=== PATIENT | male | born 1990 | race Caucasian/White ===

== ENCOUNTER 2017-01-02 21:31 | Emergency (ER) | payer MEDICAID ==
[2017-01-02] MEDS ORDERED: Ketorolac 30 MG/ML SDV IM ONE (21:55)
--- NOTE | 2017-01-02 21:58 | EDM.PDOC ---
ED HPI GENERAL MEDICAL PROBLEM - General Chief Complaint: Back Pain or Injury Stated Complaint: SEVERE BACK PAIN, [id number] Time Seen by Provider: 01/02/17 21:52 Source of Information: Reports: Patient History Limitations: Reports: No Limitations - History of Present Illness INITIAL COMMENTS - FREE TEXT/NARRATIVE: 2 weeks h/o LBP going into testicles also had blood in urine saw urology with CAT told nothing emergent. no MRI done. 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 Lower Back Pain Score (Numeric/FACES): 10 - Related Data Allergies Allergy/AdvReac Type Severity Reaction Status Date / Time No Known Allergies Allergy Verified 01/02/17 21:59 Home Meds: Home Meds . [No Known Home Meds] 05/09/15 [History] Past Medical History - Past Health History Medical/Surgical History: Denies Medical/Surgical History Respiratory History: Reports: Sleep Apnea - Past Surgical History Respiratory Surgical History: Reports: None Social & Family History - Family History Family Medical History: Noncontributory - Tobacco Use Smoking Status *Q: Never Smoker Years of Tobacco use: 15 Packs/Tins Daily: 1 Second Hand Smoke Exposure: No - Caffeine Use Caffeine Use: Reports: None - Recreational Drug Use Recreational Drug Use: No ED ROS GENERAL - Review of Systems Review Of Systems: ROS reveals no pertinent complaints other than HPI. ED EXAM,LOWER BACK PAIN/INJURY - Physical Exam Exam: See Below Exam Limited By: No Limitations General Appearance: Alert, WD/WN, Mild Distress, Other (LBP) Ears: Hearing Grossly Normal Throat/Mouth: Normal Voice, No Airway Compromise Head: Atraumatic Neck: Non-Tender, Full Range of Motion Respiratory/Chest: No Respiratory Distress Cardiovascular: Regular Rate, Rhythm GI/Abdominal: Soft, Non-Tender Back Exam: Muscle Spasm, Paraspinal Tenderness, Other (bilateral LS with sciatica, gait limited to pain) Extremities: Normal Inspection Neurological: Alert, No Motor/Sensory Deficits, Oriented x 3 Psychiatric: Tearful Skin Exam: Warm, Dry, Normal Color Lymphatic: No Adenopathy Course - Vital Signs Last Recorded V/S: Last Vital Signs Temp 37.2 C 01/02/17 21:32 Pulse 93 01/02/17 21:32 Resp 20 01/02/17 21:32 BP 124/77 01/02/17 21:32 Pulse Ox 100 01/02/17 21:32 - Orders/Labs/Meds Orders: Active Orders 24 hr Category Date Time Status Butorphanol [Stadol] Med 01/02/17 22:28 Once 2 mg IM ONETIME ONE Promethazine [Phenergan] Med 01/02/17 22:28 Once 25 mg IM ONETIME ONE Meds: Medications Discontinued Medications Generic Name Dose Route Start Last Admin Trade Name Freq PRN Reason Stop Dose Admin Ketorolac Tromethamine 30 mg 01/02/17 21:55 01/02/17 22:02 Toradol IM 01/02/17 21:56 30 mg ONETIME ONE Administration - Re-Assessments/Exams Free Text/Narrative Re-Assessment/Exam: 01/02/17 22:28 re-exam; s/p IM Rx = worse. Departure - Departure Time of Disposition: 22:29 Disposition: Home, Self-Care 01 Condition: Good Clinical Impression: Lumbar radicular syndrome - Discharge Information Instructions: Sciatica, [id number] Forms: ED Department Discharge Additional Instructions: 1) avoid bending lifting straining 2) see clinic tomorrow for possible MRI SCAN of lumbar rx given; flexeril 10mg tid prn x 12 vicodin 5/325mg bid prn x 12 - My Orders Last 24 Hours: My Active Orders 01/02/17 22:28 Butorphanol [Stadol] 2 mg IM ONETIME ONE Promethazine [Phenergan] 25 mg IM ONETIME ONE - Assessment/Plan Last 24 Hours: My Active Orders 01/02/17 22:28 Butorphanol [Stadol] 2 mg IM ONETIME ONE Promethazine [Phenergan] 25 mg IM ONETIME ONE
[2017-01-02] MEDS ORDERED: Butorphanol 2 MG/ML SDV IM ONE (22:28)
[2017-01-02] MEDS ORDERED: Promethazine 25 MG/ML SDV IM ONE (22:28)
[2017-01-02 23:32] VITALS: BP 125/81
== END 2017-01-02 23:24 | disposition home or self-care (01) ==
LOC: DL.ED 21:31
DX: M54.16 Radiculopathy, lumbar region (principal); G47.30 Sleep apnea, unspecified
CPT/HCPCS: 81001; 96372; 99283; J0595; J1885; J2550

== ENCOUNTER 2017-02-13 11:41 | Emergency (ER) | payer MEDICAID, OTHER ==
[2017-02-13 11:50] VITALS: BP 139/114
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
== END 2017-02-13 13:44 | disposition home or self-care (01) ==
LOC: DL.ED 11:41
DX: S30.810A Abrasion of lower back and pelvis, initial encounter (principal); R80.9 Proteinuria, unspecified; H54.7 Unspecified visual loss; F17.210 Nicotine dependence, cigarettes, uncomplicated; W22.8XXA Striking against or struck by other objects, initial encounter; Y93.89 Activity, other specified; Y99.0 Civilian activity done for income or pay
CPT/HCPCS: 72040; 72070; 72100; 81001; 87086; 87491; 87591; 99284

== ENCOUNTER 2019-02-28 04:43 | Emergency (ER) | payer BC, OTHER ==
[2019-02-28] MEDS ORDERED: Hydrocortisone/Neomycin/Polymyxin B Otic Susp 10 ML Bottle EARRT ONE (04:44)
[2019-02-28 05:09] VITALS: BP 105/56; PULSE 84
[2019-02-28] MEDS ORDERED: Hydrocortisone/Neomycin/Polymyxin B Otic Susp 10 ML Bottle ONE (05:23)
--- NOTE | 2019-02-28 05:23 | EDM.PDOC ---
ED HPI GENERAL MEDICAL PROBLEM - General Chief Complaint: ENT Problem Stated Complaint: R EAR INFECTION Time Seen by Provider: 02/28/19 05:21 Source of Information: Reports: Patient History Limitations: Reports: No Limitations - History of Present Illness INITIAL COMMENTS - FREE TEXT/NARRATIVE: 4 days h/o right ear pain. Right Ear Pain Score (Numeric/FACES): 8 - Related Data Allergies Allergy/AdvReac Type Severity Reaction Status Date / Time No Known Allergies Allergy Verified 10/10/17 14:49 Home Meds: Home Meds Cyclobenzaprine [Flexeril] 10 mg PO TID PRN #10 tab 10/10/17 [Rx] oxyCODONE HCl/Acetaminophen [Percocet 5-325 mg Tablet] 1 each PO ASDIRECTED #20 tablet 10/10/17 [Rx] Past Medical History - Past Health History Medical/Surgical History: Denies Medical/Surgical History HEENT History: Reports: Impaired Vision, Other (See Below) Other HEENT History: Patient wears soft contact lenses and glasses Cardiovascular History: Reports: None Respiratory History: Reports: Asthma, Intubation, Previous, Other (See Below), Sleep Apnea Other Respiratory History: Patient with exercise-induced asthma with no current therapy. Sleep apnea with patient noncompliant with his CPAP Gastrointestinal History: Reports: Other (See Below) Other Gastrointestinal History: LFTs elevation likely secondary to fatty liver apparent previous negative workup through a specialist Genitourinary History: Reports: None, Other (See Below) Other Genitourinary History: microscopic hematuria Musculoskeletal History: Reports: Arthritis, Back Pain, Chronic, Other (See Below), Osteoarthritis Other Musculoskeletal History: ankle sprain Neurological History: Reports: Headaches, Chronic, None Psychiatric History: Reports: Addiction, Anxiety, Depression, None, Other (See Below) Other Psychiatric History: Previous history of alcohol abuse and illicit drug use as below Endocrine/Metabolic History: Reports: None, Obesity/BMI 30+ Hematologic History: Reports: None Immunologic History: Reports: None Oncologic (Cancer) History: Reports: None Dermatologic History: Reports: None - Infectious Disease History Infectious Disease History: Reports: Chicken Pox, MRSA - Past Surgical History Head Surgeries/Procedures: Reports: None HEENT Surgical History: Reports: None Cardiovascular Surgical History: Reports: None GI Surgical History: Reports: None Oncologic Surgical History: Reports: None Dermatological Surgical History: Reports: None - Past Imaging History Past Imaging History: Reports: Ultrasound (Abdominal ultrasound in 2017) Social & Family History - Family History Family Medical History: Noncontributory - Tobacco Use Smoking Status *Q: Never Smoker - Caffeine Use Caffeine Use: Reports: Soda - Recreational Drug Use Recreational Drug Use: No - Living Situation & Occupation Living situation: Reports: Other, Single Occupation: Employed ([employer]) ED ROS ENT - Review of Systems Review Of Systems: ROS reveals no pertinent complaints other than HPI. ED EXAM, ENT - Physical Exam Exam: See Below Exam Limited By: No Limitations General Appearance: Alert, WD/WN, No Apparent Distress Ears: Hearing Grossly Normal, Canal Material, Canal Swelling, TM Dullness, Other (right) Head: Atraumatic Neck: Non-Tender, Full Range of Motion Respiratory/Chest: No Respiratory Distress Cardiovascular: Regular Rate, Rhythm GI/Abdominal: Soft, Non-Tender Neurological: Alert, Oriented, Normal Cognition, Normal Gait, No Motor/Sensory Deficits Psychiatric: Normal Affect, Normal Mood Skin: Warm, Dry, Normal Color Lymphatic: No Adenopathy Course - Vital Signs Last Recorded V/S: Last Vital Signs Temp 36.9 C 02/28/19 05:04 Pulse 84 02/28/19 05:04 Resp 18 02/28/19 05:04 BP 105/56 L 02/28/19 05:04 Pulse Ox 97 02/28/19 05:04 Departure - Departure Time of Disposition: 05:22 Disposition: Home, Self-Care 01 Condition: Good Clinical Impression: Otitis externa Qualifiers: Otitis externa type: diffuse Chronicity: acute Laterality: right Qualified Code (s): H60.311 - Diffuse otitis externa, right ear - Discharge Information Instructions: Otitis Externa, [id number] Additional Instructions: 1) don't get water into ear 2) follow up at clinic rx togo; corticosporin otic 2 drops qid x 1 week
== END 2019-02-28 05:32 | disposition home or self-care (01) ==
LOC: DL.ED 04:43
DX: H60.311 Diffuse otitis externa, right ear (principal); M19.90 Unspecified osteoarthritis, unspecified site; E66.9 Obesity, unspecified; Z68.41 Body mass index [BMI] 40.0-44.9, adult; Z79.899 Other long term (current) drug therapy
CPT/HCPCS: 99282; A9270-GY

== ENCOUNTER 2025-02-07 15:06 | Emergency (ER) | payer BC ==
[2025-02-07 15:15] VITALS: BP 143/90
[2025-02-07 15:17] VITALS: PULSE 94
== END 2025-02-07 15:48 | disposition home or self-care (01) ==
LOC: DL.ED 15:06
DX: J06.9 Acute upper respiratory infection, unspecified (principal); Z79.899 Other long term (current) drug therapy
CPT/HCPCS: 71045; 99282; 99283